=== PATIENT | female | born 1990 | race Caucasian/White ===

== ENCOUNTER 2018-02-27 16:44 | Emergency (ER) | payer BC, OTHER ==
--- NOTE | 2018-02-27 16:49 | EDPHY ---
H & P Time Seen by Provider: 02/27/18 16:49 HPI/ROS: CHIEF COMPLAINT: Near-syncope HISTORY OF PRESENT ILLNESS: Patient presents the ED after an episode of near- syncope. She does have a history of vasovagal syncope in the past. Typically she is able to drink water with improvement of her symptoms. This did not happen today. She continued to have lightheadedness and blurry vision. 911 was called. The patient was brought in having received some IV fluids. The patient denies any chest pain. She does feel slightly short of breath but is feeling admittedly anxious about her trip to the emergency department. She does report drinking some alcohol today. Past medical history is significant for polycystic ovarian disease. The patient denies any acute abdominal pain. She currently is on control. She denies any history of rectal bleeding or other acute complaints. REVIEW OF SYSTEMS: A comprehensive 10 point review of systems is otherwise negative aside from elements mentioned in the history of present illness. Source: Patient Exam Limitations: No limitations - Medical/Surgical History Hx Asthma: No Hx Chronic Respiratory Disease: No Hx Diabetes: No Hx Cardiac Disease: No Hx Renal Disease: No Hx Cirrhosis: No Hx Alcoholism: No Hx HIV/AIDS: No Hx Splenectomy or Spleen Trauma: No Other PMH: PMH:add. PSH:none - Social History Smoking Status: Never smoked - Physical Exam Exam: General Appearance: Alert, no distress Eyes: Pupils equal and round no pallor or injection ENT, Mouth: Mucous membranes moist Respiratory: There are no retractions, lungs are clear to auscultation Cardiovascular: Regular rate and rhythm, no rubs murmurs or gallops Gastrointestinal: Abdomen is soft and nontender, no masses, bowel sounds normal Neurological: A&O, normal motor function, normal sensory exam, normal cranial nerves Skin: Warm and dry, no rashes Musculoskeletal: Neck is supple nontender Extremities: symmetrical, full range of motion, no clinical evidence of DVT Constitutional: Initial Vital Signs Temperature (C) 36.7 C 02/27/18 16:52 Heart Rate 98 02/27/18 16:52 Respiratory Rate 15 02/27/18 16:52 Blood Pressure 141/98 H 02/27/18 16:52 O2 Sat (%) 95 02/27/18 16:52 O2 Delivery Mode Room Air Allergies/Adverse Reactions: No Known Allergies Allergy (Unverified 02/20/14 12:37) Home Medications: Medication Instructions Recorded Etonogestrel/Ethinyl Estradiol 1 each VG 02/20/14 [Nuvaring Vaginal Ring] Hydrocodone/APAP 5/325 [Reedy 1 - 2 tab PO Q6H PRN #20 tab 02/20/14 5/325 (RX)] Medical Decision Making - Diagnostics EKG Interpretation: EKG: Complete interpretation has been separately recorded in the [facility] archive. Summary impression: Sinus rhythm, rate 96, no ST segment elevation or depression. ED Course/Re-evaluation: The patient presents to the ED after an episode of vasovagal episode. The patient arrived is hemodynamically stable. She had an IV established. She received a L of normal saline. Patient's test is negative. Her EKG demonstrates no evidence of an arrhythmia. CBC and basic metabolic panel are within normal limits. Patient received serial examinations in the ED over a 1.5 hr period. She is now ambulatory without any recurrent symptoms of presyncope. 6:30 p.m.: I do feel the patient can be discharged home after she has responded well to IV fluids in the setting of a vasovagal episode. She is discharged home with customary aftercare instructions and return precautions. She has no complaints of significant chest pain or shortness of breath which would implicate a more serious disease such as pulmonary embolism. Differential Diagnosis: Differential diagnosis considered includes vasovagal episode, alcohol intoxication, ruptured ectopic , dehydration, metabolic derangement, arrhythmia - Data Points Laboratory Results: Laboratory Results 02/27/18 17:00 02/27/18 17:00 02/27/18 02/27/18 02/27/18 17:00 17:00 17:00 WBC 8.81 10^3/uL 10^3/uL (3.80-9.50) RBC 4.44 10^6/uL 10^6/uL (4.18-5.33) Hgb 12.8 g/dL g/dL (12.6-16.3) Hct 38.7 % % (38.0-47.0) MCV 87.2 fL fL (81.5-99.8) MCH 28.8 pg pg (27.9-34.1) MCHC 33.1 g/dL g/dL (32.4-36.7) RDW 13.1 % % (11.5-15.2) Plt Count 441 10^3/uL H 10^3/uL (150-400) MPV 9.2 fL fL (8.7-11.7) Neut % (Auto) 46.1 % % (39.3-74.2) Lymph % (Auto) 46.7 % H % (15.0-45.0) Ashley % (Auto) 5.7 % % (4.5-13.0) Eos % (Auto) 0.7 % % (0.6-7.6) Baso % (Auto) 0.6 % % (0.3-1.7) Nucleat RBC Rel Count 0.0 % % (0.0-0.2) Absolute Neuts (auto) 4.07 10^3/uL 10^3/uL (1.70-6.50) Absolute Lymphs (auto) 4.11 10^3/uL H 10^3/uL (1.00-3.00) Absolute Monos (auto) 0.50 10^3/uL 10^3/uL (0.30-0.80) Absolute Eos (auto) 0.06 10^3/uL 10^3/uL (0.03-0.40) Absolute Basos (auto) 0.05 10^3/uL 10^3/uL (0.02-0.10) Absolute Nucleated RBC 0.00 10^3/uL 10^3/uL (0-0.01) Immature Gran % 0.2 % % (0.0-1.1) Immature Gran # 0.02 10^3/uL 10^3/uL (0.00-0.10) Sodium 139 mEq/L mEq/L (135-145) Potassium 3.9 mEq/L mEq/L (3.3-5.0) Chloride 106 mEq/L mEq/L (97-110) Carbon Dioxide 20 mEq/l L mEq/l (22-31) Anion Gap 13 mEq/L mEq/L (6-14) BUN 9 mg/dL mg/dL (7-23) Creatinine 0.7 mg/dL mg/dL (0.6-1.0) Estimated GFR > 60 Glucose 88 mg/dL mg/dL (70-100) Calcium 9.8 mg/dL mg/dL (8.5-10.4) Beta HCG, Qual NEGATIVE Ethyl Alcohol 29 mg/dL H mg/dL (0-10) Medications Given: Discontinued Medications Sodium Chloride (Ns) 1,000 mls @ 0 mls/hr IV EDNOW ONE; Wide Open PRN Reason: Protocol Stop: 02/27/18 16:59 Last Admin: 02/27/18 17:00 Dose: 1,000 mls Departure - Departure Disposition: Home, Routine, Self-Care Clinical Impression: Vasovagal episode Condition: Good Instructions: Syncope (ED) Additional Instructions: 1. Please return to the emergency department for any recurrent passing out, chest pain, difficulty breathing or severe abdominal pain. 2. The testing done in the emergency department today demonstrates no significant cardiac abnormality, dehydration or anemia. 3. Please try and increase your fluid intake as mild dehydration likely contributed to your symptoms today. Referrals: Patient,NotPresent [Unknown] - As per Instructions
[2018-02-27] MEDS ORDERED: NS 1,000 ML IV ONE (16:58)
--- NOTE | 2018-02-27 17:22 | CPEKG ---
Test Reason : OPEN Blood Pressure : / mmHG Vent. Rate : 096 BPM Atrial Rate : 097 BPM P-R Int : 111 ms QRS Dur : 099 ms QT Int : 372 ms P-R-T Axes : 006 032 009 degrees QTc Int : 471 ms Sinus rhythm Confirmed by Florencio Keller ([id number]) on 02/27/2018 5:21:44 PM Referred By: Confirmed By:Florencio Keller
[2018-02-27 17:31] LABS: PLATELET COUNT 441 10^3/uL (150-400)
[2018-02-27 18:10] VITALS: BP 117/82
== END 2018-02-27 18:46 | disposition home or self-care (01) ==
LOC: EDUNIT#
DX: R55 Syncope and collapse (principal); E86.9 Volume depletion, unspecified; Y90.1 Blood alcohol level of 20-39 mg/100 ml
CPT/HCPCS: G0480